=== PATIENT | male | born 1995 | race Caucasian/White ===

== ENCOUNTER → 2016-12-19 | Outpatient (REF) | payer OTHER | LOC: M LAB REF 16:31 | PROVIDERS: ATTEND Otolaryngology | DX: H65.91 Unspecified nonsuppurative otitis media, right ear (principal) ==

== ENCOUNTER → 2017-03-16 | Outpatient (REF) | payer OTHER | LOC: M LAB REF 12:59 | PROVIDERS: ATTEND Otolaryngology | DX: H73.12 Chronic myringitis, left ear (principal) ==

== ENCOUNTER → 2017-11-14 | Outpatient (REF) | payer OTHER | LOC: M LAB REF 17:00 | PROVIDERS: ATTEND Otolaryngology | DX: H73.12 Chronic myringitis, left ear (principal) ==

== ENCOUNTER → 2018-01-01 | Outpatient (CLI) | payer OTHER | LOC: M RAD 09:17 | DX: R10.11 Right upper quadrant pain (principal) | CPT/HCPCS: 76705 ==

== ENCOUNTER → 2018-05-02 | Outpatient (REF) | payer OTHER | LOC: M LAB REF 16:55 | DX: H73.12 Chronic myringitis, left ear (principal) ==

== ENCOUNTER 2018-11-13 16:13 | Emergency (ER) | payer OTHER ==
[2018-11-13] MEDS: NS 1,000 ML IV (17:15)
[2018-11-13 17:28] LABS: BASO % 0.2 % (0.0-1.0); EOS # 0.1 10^3/uL (0.0-0.50); HEMATOCRIT 49.7 % (42.0-52.0); HEMOGLOBIN 17.2 g/dl (13.5-17.5); IMMATURE GRANULOCYTE % 0.6 % (0-3.0); LYMPH # 1.2 10^3/uL (1.5-6.5); MEAN CORPUSCULAR HEMOGLOBIN 30.7 pg (27.0-33.0); MEAN CORPUSCULAR HGB CONC 34.6 g/dl (32.0-36.5); MEAN CORPUSCULAR VOLUME 88.6 fl (80.0-96.0); MONO # 0.9 10^3/uL (0.0-0.8); MONO % 6.7 % (0.0-5.0); NEUTROPHILS # 11.3 10^3/uL (1.8-7.7); NEUTROPHILS % 82.5 % (36.0-66.0); PLATELET COUNT, AUTOMATED 285 10^3/uL (150-450); RED BLOOD COUNT 5.61 10^6/uL (4.30-6.10); RED CELL DISTRIBUTION WIDTH 11.9 % (11.5-14.5); WHITE BLOOD COUNT 13.7 10^3/uL (4.0-10.0)
[2018-11-13 17:39] LABS: INR 0.99; PROTHROMBIN TIME 13.2 SECONDS (12.1-14.4)
[2018-11-13 17:40] LABS: PARTIAL THROMBOPLASTIN TIME 29.3 SECONDS (25.4-37.6)
[2018-11-13 18:02] LABS: ALBUMIN 4.3 GM/DL (3.2-5.2); ALBUMIN/GLOBULIN RATIO 1.43 (1.00-1.93); ALKALINE PHOSPHATASE 69 U/L (45-117); ALT/SGPT 82 U/L (12-78); ANION GAP 7 MEQ/L (8-16); AST/SGOT 34 U/L (7-37); BILIRUBIN,DIRECT 0.3 MG/DL (0.0-0.2); BILIRUBIN,TOTAL 1.2 MG/DL (0.2-1.0); BLOOD UREA NITROGEN 16 MG/DL (7-18); C REACTIVE PROTEIN QUANTITATIV 0.37 MG/DL (0.00-0.30); CALCIUM LEVEL 8.8 MG/DL (8.5-10.1); CARBON DIOXIDE LEVEL 28 MEQ/L (21-32); CHLORIDE LEVEL 107 MEQ/L (98-107); CK-MB VALUE MASS < 1.0 NG/ML (<3.6); CPK CREATINE PHOSPHOKINASE 159 U/L (39-308); CREATININE FOR GFR 0.93 MG/DL (0.70-1.30); FREE T4 1.06 NG/DL (0.76-1.46); GLOMERULAR FILTRATION RATE > 60.0 (>60); GLUCOSE, FASTING 87 MG/DL (70-100); LIPASE 178 U/L (73-393); MAGNESIUM LEVEL 2.3 MG/DL (1.8-2.4); MB/CK RELATIVE INDEX 0.63 (< OR =4); POTASSIUM SERUM 4.3 MEQ/L (3.5-5.1); SODIUM LEVEL 142 MEQ/L (136-145); TOTAL PROTEIN 7.3 GM/DL (6.4-8.2); TROPONIN I < 0.02 NG/ML (< 0.10)
[2018-11-13 18:03] LABS: D-DIMER QUANT < 270 ng/ml (<500)
[2018-11-13 18:09] LABS: ERYTHROCYTE SEDIMENTATION RATE 1 mm/hr (0-15)
[2018-11-13 18:34] LABS: CONTROL LINE MONO INT CTR LINE PRESENT; MONO SCRN NEGATIVE (NEGATIVE)
== END 2018-11-13 21:25 | disposition home or self-care (01) ==
LOC: M ED 16:13
DX: R07.9 Chest pain, unspecified (principal); R42 Dizziness and giddiness; R94.5 Abnormal results of liver function studies; I45.10 Unspecified right bundle-branch block; R56.9 Unspecified convulsions; K21.9 Gastro-esophageal reflux disease without esophagitis; Z79.899 Other long term (current) drug therapy
CPT/HCPCS: 71046

== ENCOUNTER → 2019-08-13 | Outpatient (CLI) | payer OTHER ==
[~2019-08-13] MED LIST: OMEP40CA2
[2019-08-13 20:20] LABS: HEMATOCRIT 44.4 % (42.0-52.0); HEMOGLOBIN 15.4 g/dl (13.5-17.5); MEAN CORPUSCULAR HEMOGLOBIN 31.2 pg (27.0-33.0); MEAN CORPUSCULAR HGB CONC 34.7 g/dl (32.0-36.5); MEAN CORPUSCULAR VOLUME 89.9 fl (80.0-96.0); PLATELET COUNT, AUTOMATED 284 10^3/uL (150-450); RED BLOOD COUNT 4.94 10^6/uL (4.30-6.10); WHITE BLOOD COUNT 11.5 10^3/uL (4.0-10.0)
[2019-08-13 20:24] LABS: BLOOD UREA NITROGEN 20 MG/DL (7-18); CARBON DIOXIDE LEVEL 25 MEQ/L (21-32); CHLORIDE LEVEL 109 MEQ/L (98-107); CREATININE FOR GFR 1.01 MG/DL (0.70-1.30); GLOMERULAR FILTRATION RATE > 60.0 (>60); GLUCOSE, FASTING 78 MG/DL (70-100); SODIUM LEVEL 142 MEQ/L (136-145)
== END ==
LOC: M LABDRWAD 17:59
PROVIDERS: ATTEND Internal Medicine Cardiovascular Disease
DX: I48.91 Unspecified atrial fibrillation (principal); I47.1 Supraventricular tachycardia

== ENCOUNTER → 2019-09-03 | Outpatient (CLI) | payer OTHER ==
--- NOTE | 2019-09-06 10:55 | SLEEPCENT ---
DATE OF STUDY: 09/03/2019 ORDERED BY: YASHIRA Nieves Nocturnal polysomnography was performed for evaluation of sleep physiology in this patient with a history of excessive somnolence and nonrestorative sleep who has a past medical history of atrial dysrhythmias. 8 hours and 31 minutes of data were reviewed. There were 480 minutes of sleep identified. Sleep latency was normal at 9 minutes. Rapid eye movement (REM) latency was normal at 109 minutes. Sleep architecture showed minor fragmentation. There was normal sleep progression and 5 REM cycles were seen. Overall sleep efficiency 94.9%. The patient's electrocardiogram showed what appeared to be a sinus rhythm with an average heart rate of 72 beats per minute. Rate ranged 60-102. Electroencephalogram (EEG) showed reasonably normal waveforms for awake and sleep stages. There were only 21 respiratory events identified of 10 seconds duration or greater for an apnea-hypopnea index of 2.6. The events that were seen were hypopneic and related to the supine posture. Snoring was noted over the course of the study. Respiratory related arousals occurred 5.5 times per hour. No significant oxygen desaturations were seen and limb activity was limited. IMPRESSION: Normal nocturnal polysomnography with snoring. RECOMMENDATIONS: Sleep position retraining for avoidance of the supine posture may be helpful to address the snoring problem.
== END ==
LOC: M SLEEP 19:13
PROVIDERS: ATTEND Physician Assistant
DX: R40.0 Somnolence (principal); R06.83 Snoring

== ENCOUNTER → 2020-02-02 | Outpatient (CLI) | payer OTHER ==
[~2020-02-02] MED LIST changes: -OMEP40CA2; +OMEP40CA97
--- NOTE | 2020-02-02 17:06 | REP ---
Left foot series: Four views. History: Pain in the left foot. Findings: Four views of the left foot demonstrate normal bones, joints, and soft tissues. No fracture or subluxation is seen. Impression: Negative radiographs of the left foot. Electronically Signed by Tristian Burton MD 02/02/2020 04:57 P
== END ==
LOC: M ADAMS 16:45
PROVIDERS: ATTEND Physician Assistant
DX: M79.672 Pain in left foot (principal)

== ENCOUNTER → 2020-05-25 | Outpatient (REF) | payer OTHER ==
[2020-05-25 13:14] LABS: BASO # 0.1 10^3/uL (0.0-0.2); BASO % 0.9 % (0.0-1.0); EOS # 0.2 10^3/uL (0.0-0.5); LYMPH # 2.6 10^3/uL (1.5-5.0); MEAN CORPUSCULAR HEMOGLOBIN 30.7 pg (27.0-33.0); MEAN CORPUSCULAR HGB CONC 34.8 g/dl (32.0-36.5); MEAN CORPUSCULAR VOLUME 88.3 fl (80.0-96.0); MONO # 0.7 10^3/uL (0.0-0.8); MONO % 8.6 % (0.0-5.0); NEUTROPHILS # 4.2 10^3/uL (1.5-8.5); NEUTROPHILS % 53.5 % (36.0-66.0); PLATELET COUNT, AUTOMATED 285 10^3/uL (150-450); RED BLOOD COUNT 5.21 10^6/uL (4.30-6.10); WHITE BLOOD COUNT 7.9 10^3/uL (4.0-10.0)
[2020-05-25 13:55] LABS: ALBUMIN 4.1 GM/DL (3.2-5.2); ALT/SGPT 63 U/L (12-78); AMYLASE 29 U/L (25-115); BILIRUBIN,TOTAL 1.3 MG/DL (0.2-1.0); BLOOD UREA NITROGEN 16 MG/DL (7-18); CALCIUM LEVEL 9.1 MG/DL (8.5-10.1); CARBON DIOXIDE LEVEL 26 MEQ/L (21-32); CHLORIDE LEVEL 107 MEQ/L (98-107); CHOLESTEROL LEVEL 187 MG/DL (<200); CHOLESTEROL RISK RATIO 3.978 (<5); GLOMERULAR FILTRATION RATE > 60.0 (>60); GLUCOSE, FASTING 82 MG/DL (70-100); HDL CHOLESTEROL 47 MG/DL (>40); LDL CHOLESTEROL 126 MG/DL (<100); LIPASE 139 U/L (73-393); NON-HDL-C 140 MG/DL; POTASSIUM SERUM 4.5 MEQ/L (3.5-5.1); SODIUM LEVEL 138 MEQ/L (136-145); TRIGLYCERIDES LEVEL 71 MG/DL (<150)
== END ==
LOC: M SFHCADAM 08:18
PROVIDERS: ATTEND Family Medicine
DX: Z00.00 Encounter for general adult medical examination without abnormal findings (principal); R10.9 Unspecified abdominal pain

== ENCOUNTER → 2020-07-08 | Outpatient (CLI) | payer OTHER ==
--- NOTE | 2020-09-07 08:14 | REP ---
ABDOMINAL RIGHT UPPER QUADRANT ULTRASOUND: Delay in reporting results from hospital computer system malfunction from malware/ ransomware. HISTORY: Right upper quadrant pain for one month. FINDINGS: There is no cholelithiasis, gallbladder wall thickening or pericholecystic fluid. There is no intrahepatic or extrahepatic biliary duct dilatation. The common biliary duct measures 2.1 mm in diameter. The hepatic parenchyma is homogeneous. There are no focal hepatic masses or cysts. The liver is upper normal size, measuring 15.5 cm in the mid-clavicular line. Portions of the pancreas are obscured by bowel gas. The visualized areas of the pancreas are unremarkable. The right kidney measures 10.0 x 6.9 x 5.6 cm and is normal size. There is no right renal calculus, hydronephrosis, mass or cyst. The study is technically difficult because of bowel gas. IMPRESSION: Essentially negative abdominal right upper quadrant ultrasound. MTDD
== END ==
LOC: M PLAIMG 08:13
PROVIDERS: ATTEND Family Medicine
DX: R10.11 Right upper quadrant pain (principal)

== ENCOUNTER → 2021-10-07 | Outpatient (REF) | payer OTHER ==
[~2021-10-07] MED LIST changes: +OMEP40CA4; -OMEP40CA97
[2021-10-07 17:22] LABS: ALT/SGPT 71 U/L (12-78); BILIRUBIN,DIRECT 0.2 MG/DL (0.0-0.2); BLOOD UREA NITROGEN 15 MG/DL (7-18); CALCIUM LEVEL 9.9 MG/DL (8.5-10.1); CARBON DIOXIDE LEVEL 29 MEQ/L (21-32); CHLORIDE LEVEL 109 MEQ/L (98-107); CREATININE FOR GFR 0.97 MG/DL (0.70-1.30); GLOMERULAR FILTRATION RATE > 60.0 (>60); GLUCOSE, FASTING 77 MG/DL (70-100); POTASSIUM SERUM 4.2 MEQ/L (3.5-5.1); SODIUM LEVEL 142 MEQ/L (136-145); TRIGLYCERIDES LEVEL 112 MG/DL (<150)
[2021-10-07 17:23] LABS: ALBUMIN 4.2 GM/DL (3.2-5.2); BASO # 0.1 10^3/uL (0.0-0.2); BASO % 0.5 % (0.0-1.0); CHOLESTEROL LEVEL 210 MG/DL (<200); CHOLESTEROL RISK RATIO 4.468 (<5); EOS # 0.1 10^3/uL (0.0-0.5); FREE T4 1.07 NG/DL (0.76-1.46); HDL CHOLESTEROL 47 MG/DL (>40); HEMATOCRIT 46.9 % (42.0-52.0); HEMOGLOBIN 15.8 g/dl (13.5-17.5); LDL CHOLESTEROL 141 MG/DL (<100); LYMPH # 3.4 10^3/uL (1.5-5.0); LYMPH % 31.2 % (24.0-44.0); MEAN CORPUSCULAR HGB CONC 33.7 g/dl (32.0-36.5); MONO # 0.9 10^3/uL (0.0-0.8); MONO % 8.1 % (2.0-8.0); NEUTROPHILS # 6.4 10^3/uL (1.5-8.5); NEUTROPHILS % 58.6 % (36.0-66.0); NON-HDL-C 163 MG/DL; PLATELET COUNT, AUTOMATED 298 10^3/uL (150-450); RED BLOOD COUNT 5.27 10^6/uL (4.30-6.10); WHITE BLOOD COUNT 10.9 10^3/uL (4.0-10.0)
== END ==
LOC: M LABDRWAD 16:15
PROVIDERS: ATTEND Internal Medicine Cardiovascular Disease
DX: Z13.220 Encounter for screening for lipoid disorders (principal); R00.2 Palpitations; R53.83 Other fatigue

== ENCOUNTER → 2024-06-28 | Outpatient (CLI) | payer BC ==
[2024-06-28 17:39] LABS: BASO # 0.1 10^3/uL (0.0-0.2); BASO % 0.6 % (0.0-1.0); EOS # 0.1 10^3/uL (0.0-0.5); EOS % 1.4 % (0.0-3.0); HEMATOCRIT 44.7 % (42.0-52.0); HEMOGLOBIN 14.9 g/dl (13.5-17.5); LYMPH # 2.5 10^3/uL (1.5-5.0); LYMPH % 32.2 % (24.0-44.0); MEAN CORPUSCULAR HEMOGLOBIN 30.2 pg (27.0-33.0); MEAN CORPUSCULAR HGB CONC 33.3 g/dl (32.0-36.5); MEAN CORPUSCULAR VOLUME 90.7 fl (80.0-96.0); MONO # 0.6 10^3/uL (0.0-0.8); MONO % 7.4 % (2.0-8.0); NEUTROPHILS # 4.6 10^3/uL (1.5-8.5); PLATELET COUNT, AUTOMATED 278 10^3/uL (150-450); RED BLOOD COUNT 4.93 10^6/uL (4.30-6.10); WHITE BLOOD COUNT 7.9 10^3/uL (4.0-10.0)
[2024-06-28 17:41] LABS: LIPASE 48 U/L (12-53)
[2024-06-28 17:42] LABS: C REACTIVE PROTEIN QUANTITATIV < 0.40 MG/DL (<1.0)
[2024-06-28 17:43] LABS: AMYLASE 40 U/L (30-118)
[2024-06-28 17:44] LABS: ALBUMIN 4.1 G/DL (3.2-5.2); ALKALINE PHOSPHATASE 71 U/L (46-116); ALT/SGPT 61 U/L (7.0-40); AST/SGOT 21 U/L (<34); BILIRUBIN,TOTAL 1.2 MG/DL (0.3-1.2); BLOOD UREA NITROGEN 15 MG/DL (9-23); CALCIUM LEVEL 9.3 MG/DL (8.5-10.1); CARBON DIOXIDE LEVEL 25 MMOL/L (20-31); CHLORIDE LEVEL 108 MMOL/L (98-107); CREATININE FOR GFR 1.03 MG/DL (0.70-1.30); GLOMERULAR FILTRATION RATE > 60.0 (>60); GLUCOSE, FASTING 88 MG/DL (60-100); POTASSIUM SERUM 4.2 MMOL/L (3.5-5.1); SODIUM LEVEL 140 MMOL/L (136-145); TOTAL PROTEIN 6.6 G/DL (5.7-8.2)
== END ==
LOC: M WUC 10:16
PROVIDERS: ATTEND Physician Assistant
DX: R10.84 Generalized abdominal pain (principal); R12 Heartburn; R93.5 Abnormal findings on diagnostic imaging of other abdominal regions, including retroperitoneum